=== PATIENT | female | born 1965 | race Caucasian/White ===

== ENCOUNTER 2024-10-27 23:13 | Observation (INO) | payer BC ==
[~2024-10-27] VITALS: Ht 167.6 cm; Wt 98.2 kg
[~2024-10-27 23:13] MED LIST: CYCL10 PO; HYDACE5 PO
[2024-10-27 23:58] LABS: BASOPHILS ABSOLUTE AUTO 0.03 K/mm3 (0.00-0.23); BASOPHILS PERCENT AUTO 0 % (0-2); EOSINOPHILS PERCENT AUTO 1 % (0-6); Hematocrit 42.2 % (33.0-51.0); Hemoglobin 14.4 g/dL (11.5-16.0); IMMATURE GRAN ABSOLUTE AUTO 0.01 K/mm3 (0.00-0.10); IMMATURE GRAN PERCENT AUTO 0 % (0-1); LYMPHOCYTES ABSOLUTE AUTO 3.83 K/mm3 (0.84-5.20); LYMPHOCYTES PERCENT AUTO 51 % (21-46); MONOCYTES ABSOLUTE AUTO 1.07 K/mm3 (0.16-1.47); MONOCYTES PERCENT AUTO 14 % (4-13); Mean Corpuscular HGB 29.3 pg (26.0-34.0); Mean Corpuscular HGB Conc 34.1 g/dL (31.5-36.5); Mean Corpuscular Volume 86 fL (80-100); Mean Platelet Volume 9.8 fL (9.1-12.4); NEUTROPHILS ABSOLUTE AUTO 2.45 K/mm3 (1.96-9.15); NEUTROPHILS PERCENT AUTO 33 % (41-73); Platelet Count 347 K/mm3 (150-400); RDW Standard Deviation 40.7 fL (35.1-46.3); Red Blood Cell Count 4.92 M/mm3 (3.80-5.20); White Blood Cell Count 7.49 K/mm3 (4.00-11.30)
[2024-10-28 00:20] LABS: International Normalized Ratio 0.92; Prothrombin Time Results 9.9 Sec (9.7-11.5)
[2024-10-28 00:21] LABS: Alanine Aminotransfer (ALT/SGP 41 U/L (12-78); Albumin, Blood 3.8 g/dL (3.4-5.0); Alk Phos 76 U/L (50-136); Anion Gap 15 mmol/L (3-11); Aspartate Aminotrans (AST/SGOT 22 U/L (12-37); Bilirubin, Total 0.3 mg/dL (0.1-1.0); Blood Urea Nitrogen 20 mg/dL (8-24); Bun/Creatinine Ratio 21.8 (12.0-20.0); CO2, Blood 19 mmol/L (21-32); Calcium, Blood 9.7 mg/dL (8.5-10.1); Chloride, Blood 110 mmol/L (98-108); Creatinine, Blood 0.92 mg/dL (0.40-1.00); Ethanol (Alcohol), Blood, Med <3 mg/dL; Glomerular Filtration Rate 73 (60-); Glucose, Blood 127 mg/dL (70-99); Potassium, Blood 3.3 mmol/L (3.5-5.5); Sodium, Blood 141 mmol/L (136-145); Total Protein, Blood 7.8 g/dL (6.4-8.2)
[2024-10-28] MEDS ORDERED: Ketorolac Tromethamine 30mg Vial IV ONE (00:25)
[2024-10-28] MEDS ORDERED: NS 1,000 ML IV SCH (00:25)
[2024-10-28] MEDS ORDERED: DiphenhydrAMINE HCl 50 MG/ML 1ML Vial IV ONE (00:25)
[2024-10-28] MEDS ORDERED: Acetaminophen 500 MG Tab PO ONE (00:25)
[2024-10-28] MEDS ORDERED: Potassium Chloride 20 MEQ TabCR PO ONE (02:00)
[2024-10-28] MEDS ORDERED: Dexamethasone Sod Phos 10 MG/ML 1ML VIAL IV ONE (02:20)
[2024-10-28] MEDS ORDERED: FentaNYL Citrate 50 MCG/ML 2 ML Injection IV ONE (02:20)
[2024-10-28] MEDS ORDERED: FLU VACC TS2024-25(6MOS UP)/PF 45 MCG/0.5 ML SYRINGE IM ONE (03:05)
[2024-10-28] MEDS ORDERED: Ondansetron HCl 2 MG / ML 2ML Vial IV PRN (03:05)
[2024-10-28] MEDS ORDERED: SUMAtriptan Succinate 25 MG Tab PO PRN (03:05)
[2024-10-28] MEDS ORDERED: Acetaminophen 325 MG TABLET PO PRN ×2 (03:10)
[2024-10-28] MEDS ORDERED: Ketorolac Tromethamine 15mg Vial IV PRN (03:55)
[2024-10-28 05:48] LABS: BASOPHILS ABSOLUTE AUTO 0.01 K/mm3 (0.00-0.23); BASOPHILS PERCENT AUTO 0 % (0-2); EOSINOPHILS PERCENT AUTO 0 % (0-6); Hematocrit 40.6 % (33.0-51.0); Hemoglobin 13.9 g/dL (11.5-16.0); IMMATURE GRAN ABSOLUTE AUTO 0.03 K/mm3 (0.00-0.10); IMMATURE GRAN PERCENT AUTO 0 % (0-1); LYMPHOCYTES ABSOLUTE AUTO 0.83 K/mm3 (0.84-5.20); LYMPHOCYTES PERCENT AUTO 9 % (21-46); MONOCYTES ABSOLUTE AUTO 0.13 K/mm3 (0.16-1.47); MONOCYTES PERCENT AUTO 1 % (4-13); Mean Corpuscular HGB 29.4 pg (26.0-34.0); Mean Corpuscular HGB Conc 34.2 g/dL (31.5-36.5); Mean Corpuscular Volume 86 fL (80-100); Mean Platelet Volume 10.1 fL (9.1-12.4); NEUTROPHILS ABSOLUTE AUTO 8.78 K/mm3 (1.96-9.15); NEUTROPHILS PERCENT AUTO 90 % (41-73); Platelet Count 305 K/mm3 (150-400); RDW Standard Deviation 40.5 fL (35.1-46.3); Red Blood Cell Count 4.73 M/mm3 (3.80-5.20); White Blood Cell Count 9.78 K/mm3 (4.00-11.30)
[2024-10-28 06:23] LABS: Alanine Aminotransfer (ALT/SGP 38 U/L (12-78); Albumin, Blood 3.5 g/dL (3.4-5.0); Albumin/Globulin Ratio 0.9 (0.8-1.8); Alk Phos 67 U/L (50-136); Anion Gap 13 mmol/L (3-11); Aspartate Aminotrans (AST/SGOT 26 U/L (12-37); Bilirubin, Total 0.3 mg/dL (0.1-1.0); Blood Urea Nitrogen 16 mg/dL (8-24); Bun/Creatinine Ratio 20.9 (12.0-20.0); CHOL/HDL RATIO 3.9; CO2, Blood 19 mmol/L (21-32); Calcium, Blood 8.5 mg/dL (8.5-10.1); Chloride, Blood 110 mmol/L (98-108); Cholesterol 190 mg/dL (50-200); Creatinine, Blood 0.77 mg/dL (0.40-1.00); Globulin, Blood 3.8 g/dL (2.2-4.0); Glomerular Filtration Rate 90 (60-); Glucose, Blood 151 mg/dL (70-99); HDL Cholesterol 49 mg/dL (>39); LDL/HDL RATIO 2.5; Low Density Lipoprotein Chol 123 mg/dL (0-110); Magnesium, Blood 1.9 mg/dL (1.6-2.4); Potassium, Blood 4.2 mmol/L (3.5-5.5); Sodium, Blood 138 mmol/L (136-145); Total Protein, Blood 7.3 g/dL (6.4-8.2); Triglycerides 91 mg/dL (30-160); Very Low Density Lipoprot Chol 18 mg/dL (6-32)
[2024-10-28] MEDS ORDERED: Enoxaparin 40 MG/0.4 ML SYR SC SCH (09:00)
[2024-10-28] MEDS ORDERED: Atorvastatin 40 MG Tab PO SCH (09:00)
[2024-10-28] MEDS ORDERED: Aspirin 81 MG Chew PO SCH (09:00)
[2024-10-28 15:45] VITALS: BP 133/82
[2024-10-28] MEDS ORDERED: EUTHYROX25 MCG (15:48)
--- NOTE | 2024-10-28 19:24 | NUR ---
ADMISSION NOTE/SHIFT SUMMARY PATIENT ARRIVED TO ROOM 312 THIS AFTERNOON VIA WHEELCHAIR. A/OX4, INDEPENDENT IN ROOM. ADMISSION ASSESSMENT COMPLETED. PATIENT UNAWARE OF DOSEAGE OF HOME LEVOTHYROXINE, BUT STATES IS THE ONLY MEDICATION SHE IS PRESCRIBED. PATIENT STATES HEADACHE 01/20, DENIES NEED FOR PRN MEDICATION. VSS. FAMILY AT BEDSIDE. PLAN TO HAVE MRI, FORM COMPLETED IN ED PER REPORT FROM BAMBI. Q4 NEURO CHECKS PER ORDER. PATIENT WITH EQUAL STRENGTH BILATERALLY TO UPPER AND LOWER EXTREMITIES, DENIES ANY NUMBNESS OR TINGLING SINCE ADMISSION TO ROOM 312. TELEMETRY IN PLACE, NO EVENTS NOTED. NO OTHER CONCERNS AT THIS TIME.
[2024-10-28 19:54] VITALS: BP 104/58
[2024-10-29 04:25] VITALS: BP 125/77
--- NOTE | 2024-10-29 05:14 | NUR ---
SHIFT SUMMARY PATIENT IS ALERT AND ORIENTED. PATIENT HAS HAD NO ACUTE EVENTS THIS SHIFT. VITAL SIGNS REVIEWED. PATIENT HAS HAD NO COMPLAINTS OF PAIN, NAUSEA, SOB OR NAUSEA. PATIENT HAS BEEN SLEEPING COMFORTABLY ALL SHIFT. PATIENT HAS BEEN IND IN ROOM. PATIENT IS AWAITING MRI AND ECHO. BED IN LOCKED AND LOWEST POSITION. CALL LIGHT IN PLACE. WILL MONITOR UNTIL SHIFT CHANGE.
[2024-10-29 05:52] LABS: BASOPHILS ABSOLUTE AUTO 0.01 K/mm3 (0.00-0.23); BASOPHILS PERCENT AUTO 0 % (0-2); EOSINOPHILS PERCENT AUTO 0 % (0-6); Hematocrit 39.8 % (33.0-51.0); Hemoglobin 13.6 g/dL (11.5-16.0); IMMATURE GRAN ABSOLUTE AUTO 0.03 K/mm3 (0.00-0.10); IMMATURE GRAN PERCENT AUTO 0 % (0-1); LYMPHOCYTES ABSOLUTE AUTO 1.79 K/mm3 (0.84-5.20); LYMPHOCYTES PERCENT AUTO 18 % (21-46); MONOCYTES ABSOLUTE AUTO 0.84 K/mm3 (0.16-1.47); MONOCYTES PERCENT AUTO 9 % (4-13); Mean Corpuscular HGB 29.8 pg (26.0-34.0); Mean Corpuscular HGB Conc 34.2 g/dL (31.5-36.5); Mean Corpuscular Volume 87 fL (80-100); Mean Platelet Volume 10.5 fL (9.1-12.4); NEUTROPHILS ABSOLUTE AUTO 7.16 K/mm3 (1.96-9.15); NEUTROPHILS PERCENT AUTO 73 % (41-73); Platelet Count 320 K/mm3 (150-400); RDW Coefficient Variation 13.3 % (11.7-14.2); RDW Standard Deviation 42.3 fL (35.1-46.3); Red Blood Cell Count 4.57 M/mm3 (3.80-5.20); White Blood Cell Count 9.83 K/mm3 (4.00-11.30)
[2024-10-29 06:13] LABS: Bun/Creatinine Ratio 22.6 (12.0-20.0); Calcium, Blood 9.1 mg/dL (8.5-10.1); Creatinine, Blood 0.8 mg/dL (0.40-1.00); Potassium, Blood 4.1 mmol/L (3.5-5.5)
[2024-10-29 07:20] VITALS: BP 119/71
[2024-10-29] MEDS ORDERED: LORazepam 2 MG/ML 1ML Injection IV SCH (11:55)
--- NOTE | 2024-10-29 14:42 | NUR ---
PATIENT TO MRI NOW WITH DAUGHTER PREMEDICATED WITH [facility]
[2024-10-29 15:12] VITALS: BP 127/79
[2024-10-29] MEDS ORDERED: IMITREX25 MG PO (16:19)
--- NOTE | 2024-10-29 17:33 | NUR ---
[facility] DISCHARGED HOME, DISCHARGE INSTRUCTIONS GIVEN TO PATIENT AND , BOTH STATED UNDERSTANDING OF FOLLOW UP NEEDS, MEDICATIONS, AND INSTRUCTION. BOTH DENIED FURTHER QUESTIONS
== END 2024-10-29 17:03 | disposition home or self-care (01) ==
LOC: ER 23:13 → ERHOLD 23:14 → MEDS 10-28 15:45
PROVIDERS: Emergency Medicine; Family Medicine; ADMIT Student in an Organized Health Care Education/Training Program
DX: R51.9 Headache, unspecified (principal); R53.1 Weakness; R20.0 Anesthesia of skin; E87.6 Hypokalemia
CPT/HCPCS: 36415; 70450; 70496; 70498; 70551; 80048; 80053; 80061; 80320; 83735; 85025; 85610; 85651; 85730; 86141; 93005; 93010; 93306; 96372; 96372-59; 96374-59; 96375; 96375-59; 99285-25; A9270; G0378; J1100; J1200; J1650; J1885; J2060; J3010; J7030; Q9967